=== PATIENT | female | born 1995 | race Caucasian/White ===

== ENCOUNTER → 2021-10-21 | Outpatient (REF) | LOC: M LAB 12:52 | DX: Z02.89 Encounter for other administrative examinations (principal) ==

== ENCOUNTER → 2021-10-27 | Outpatient (REF) | LOC: M RAD 12:13 | PROVIDERS: ATTEND Nurse Practitioner Adult Health | DX: Z00.00 Encounter for general adult medical examination without abnormal findings (principal) ==

== ENCOUNTER → 2022-01-15 | Outpatient (REF) ==
[2022-01-15 14:54] LABS: RSV AMPLIFICATION NEGATIVE (NEGATIVE)
== END ==
LOC: M LABSMTC 09:50
PROVIDERS: ATTEND Family Medicine
DX: Z11.52 Encounter for screening for COVID-19 (principal)

== ENCOUNTER → 2022-01-20 | Outpatient (CLI) | payer BC ==
[2022-01-20 09:13] LABS: CHOLESTEROL RISK RATIO 3.761 (<5)
== END ==
LOC: M LAB 08:02
PROVIDERS: ATTEND Physician Assistant
DX: Z13.220 Encounter for screening for lipoid disorders (principal)

== ENCOUNTER → 2022-01-20 | Outpatient (CLI) | payer BC ==
[2022-01-20 08:53] LABS: BASO # 0.1 10^3/uL (0.0-0.2); BASO % 0.5 % (0.0-1.0); EOS # 0.2 10^3/uL (0.0-0.5); EOS % 2.2 % (0.0-3.0); HEMATOCRIT 42.6 % (36.0-47.0); HEMOGLOBIN 13.7 g/dl (12.0-15.5); LYMPH # 3.2 10^3/uL (1.5-5.0); LYMPH % 34.7 % (24.0-44.0); MEAN CORPUSCULAR HEMOGLOBIN 27.4 pg (27.0-33.0); MEAN CORPUSCULAR HGB CONC 32.2 g/dl (32.0-36.5); MEAN CORPUSCULAR VOLUME 85.2 fl (80.0-96.0); MONO # 0.5 10^3/uL (0.0-0.8); MONO % 5.4 % (2.0-8.0); NEUTROPHILS # 5.3 10^3/uL (1.5-8.5); NEUTROPHILS % 56.7 % (36.0-66.0); PLATELET COUNT, AUTOMATED 259 10^3/uL (150-450); WHITE BLOOD COUNT 9.3 10^3/uL (4.0-10.0)
[2022-01-20 09:24] LABS: ALBUMIN 4.3 GM/DL (3.2-5.2); ALT/SGPT 36 U/L (12-78); BILIRUBIN,TOTAL 0.3 MG/DL (0.2-1.0); BLOOD UREA NITROGEN 19 MG/DL (7-18); CARBON DIOXIDE LEVEL 30 MEQ/L (21-32); CHLORIDE LEVEL 106 MEQ/L (98-107); CREATININE FOR GFR 0.66 MG/DL (0.55-1.30); GLOMERULAR FILTRATION RATE > 60.0 (>60); GLUCOSE, FASTING 80 MG/DL (70-100); SODIUM LEVEL 141 MEQ/L (136-145)
[2022-01-20 11:45] LABS: HEPATITIS B SURFACE ANTIBODY NEGATIVE (POSITIVE)
[2022-01-20 12:25] LABS: HEPATITIS C VIRUS ABY INDEX 0.1 INDEX (<0.8); HIV 1&2 SCREEN CENTAUR NEGATIVE (NEGATIVE)
== END ==
LOC: M LAB 08:00
PROVIDERS: ATTEND Internal Medicine Infectious Disease
DX: Z22.7 Latent tuberculosis (principal)

== ENCOUNTER 2022-10-23 03:43 | Emergency (ER) | payer BC ==
[~2022-10-23] VITALS: Ht 177.8 cm; Wt 127.3 kg
[2022-10-23] MEDS ORDERED: KETOROLAC 60MG 2ML VIAL IM ONE (08:45)
[2022-10-23] MEDS ORDERED: LIDOCAINE 5% (LIDODERM) PATCH TD ONE (08:45)
[2022-10-23] MEDS ORDERED: ASPE4PAD TOP (10:25)
[2022-10-23] MEDS ORDERED: NAPR-837 PO (10:25)
[2022-10-23] MEDS ORDERED: METH-1165 PO (10:25)
[2022-10-23 10:31] VITALS: BP 119/77
== END 2022-10-23 10:32 | disposition home or self-care (01) ==
LOC: M ED 03:43
DX: M54.50 Low back pain, unspecified (principal); W00.0XXA Fall on same level due to ice and snow, initial encounter; F41.9 Anxiety disorder, unspecified; Z88.2 Allergy status to sulfonamides; Z79.1 Long term (current) use of non-steroidal anti-inflammatories (NSAID); Z79.899 Other long term (current) drug therapy
CPT/HCPCS: 72110; 72190; 96372; 99283; J1885

== ENCOUNTER → 2022-10-26 | Outpatient (CLI) | payer BC ==
[~2022-10-26] MED LIST: ASPE4PAD TOP; METH-1165 PO; NAPR-837 PO
[2022-10-26 18:10] LABS: BASO % 0.4 % (0.0-1.0); EOS # 0.1 10^3/uL (0.0-0.5); EOS % 0.6 % (0.0-3.0); HEMOGLOBIN 13.1 g/dl (12.0-15.5); LYMPH # 1.4 10^3/uL (1.5-5.0); LYMPH % 17.4 % (24.0-44.0); MEAN CORPUSCULAR HEMOGLOBIN 27.4 pg (27.0-33.0); MEAN CORPUSCULAR VOLUME 85.8 fl (80.0-96.0); MONO # 0.6 10^3/uL (0.0-0.8); MONO % 7.2 % (2.0-8.0); PLATELET COUNT, AUTOMATED 251 10^3/uL (150-450); RED BLOOD COUNT 4.78 10^6/uL (4.00-5.40); WHITE BLOOD COUNT 8.1 10^3/uL (4.0-10.0)
[2022-10-26 18:30] LABS: FOLLICLE STIMULATING HORMONE 13.5 mIU/ML; LUTEINIZING HORMONE 44.7 mIU/ML
[2022-10-26 18:31] LABS: PROGESTERONE 0.74 NG/ML
[2022-10-26 18:44] LABS: HCG, SERUM QUALITATIVE NEGATIVE (NEGATIVE)
== END ==
LOC: M LAB 16:53
PROVIDERS: ATTEND Physician Assistant
DX: N92.6 Irregular menstruation, unspecified (principal)

== ENCOUNTER 2022-10-28 09:40 | Emergency (ER) | payer BC, OTHER ==
[~2022-10-28] VITALS: Ht 177.8 cm; Wt 132.9 kg
[2022-10-28 09:42] VITALS: BP 129/71
== END 2022-10-28 10:28 | disposition home or self-care (01) ==
LOC: M ED 09:40
DX: M54.50 Low back pain, unspecified (principal); Z79.899 Other long term (current) drug therapy; Z79.1 Long term (current) use of non-steroidal anti-inflammatories (NSAID); Z88.2 Allergy status to sulfonamides

== ENCOUNTER → 2022-11-10 | Outpatient (CLI) | payer BC | LOC: M WHC 07:56 | PROVIDERS: ATTEND Physician Assistant | DX: N92.6 Irregular menstruation, unspecified (principal) ==